=== PATIENT | male | born 1995 | race Caucasian/White ===

== ENCOUNTER 2019-11-24 22:05 | Emergency (ER) | payer SELFPAY ==
[~2019-11-24] VITALS: Ht 175.2 cm; Wt 59.0 kg
[2019-11-24 22:05] VITALS: BP 138/82
--- OUTSIDE RECORDS SUMMARY | 2019-11-24 22:09 | XMS REPORT | Referral Summary ---
Author Author [facility] Organization [facility] Address Unknown Phone Unavailable Care Team Providers Care Circulation Assistant Name Role Phone No PCP, Pt States PCP Encounter [facility] [phone] Date(s): 07/09/17 - 07/09/17 [facility] [address] [place] [address] [facility] Discharge Diagnosis: Boxers fracture Discharge Disposition: 01-Home or Self Care Attending Physician: Provider, Immediate Care Attending Physician: Darius Rosa APRN Admitting Physician: Provider, Immediate Care Vital Signs Most recent to 1 oldest [Reference Range]: Temperature Oral 37 degC [35.8-37.3 degC] (07/09/17 11:57 AM) Peripheral Pulse 58 bpm Rate [60-100 bpm] *LOW* (07/09/17 11:57 AM) Blood Pressure 122/80 mmHg [90-140/60-90 mmHg] (07/09/17 11:57 AM) SpO2 99 % (07/09/17 11:57 AM) Problem List No Known Problems Allergies, Adverse Reactions, Alerts No Known Allergies Medications Crutches (DME) DME Item weight bearing as tolerated, See Instructions, # 1 Each, 0 Refill(s), P harmacy: [place] [id number], weight bearing as tolerated, Supply Start Date: 03/01/14 Status: Ordered Results No data available for this section Immunizations No data available for this section Procedures Procedure Date Related Diagnosis Body Site Application of short arm splint (forearm to 07/09/17 hand); static.. Social History Social History Type Response Smoking Status Never smoker entered on: 01/25/14 Assessment and Plan Extracted from: Title: Office Visit Note Author: Darius Rosa APRN D ate: 07/09/17 Patient was placed in the ulnar gutter splint. He isperipheral neurovascular intact before and after placement of the splint. 1.Boxers fracture Instructed patient on medication, use, common side effects, and administration. Discussed proper OTC medication, including [Tylenol or ibuprofen], for symptomatic relief. Discussed use of therapeutic techniques: PRICEMM therapy (protection, relative rest, ice, compression, elevation, medications, modalities) for symptomatic relief. Instructed patient if symptoms worsen or new symptoms arise to seek medical attention here or at the ER. Instructed patient if symptoms do not improve follow up with PCP in 2-3 days. Patient voiced understanding and agreed with treatment plan. Patient dismissed in stable condition. Ordered: Office Visit Level 3 New [id number] Right hand pain Reason For Exam Injury, hand REPORT INDICATION: Trauma. 3 views. AVAILABLE COMPARISONS: None. An acute fracture of the distal fifth metacarpal is present involving the metaphysis and extending into the head of the metacarpal. This extends towards the lateral aspect of the fifth metacarpal/ phalangeal joint. It is nondisplaced. Remainder of the hand is negative. IMPRESSION: Acute nondisplaced fracture of the distal fifth metacarpal. [1] Extracted from: Title: Ulner gutter splint Author: Hayde Cain RN Wayne e: 07/09/17 Ulnar gutter splint applied to right arm as ordered by Darius Rosa APRN. Instructions on care given, pt verbalizes understanding.
--- NOTE | 2019-11-24 22:14 | ED General ---
General Stated Complaint: ABD PAIN Source of Information: Patient, EMS, RN Notes Reviewed History of Present Illness Date Seen by Provider: Nov 24, 2019 Time Seen by Provider: 22:13 Initial Comments This patient is a 24-year-old male presents to the emergency department via EMS complaining of left flank pain. Patient states been going on for a couple days. Patient denies any fever nausea vomiting or diarrhea. States she's had a little loose stool for the past 2 days. We'll do medical evaluation treatment is needed Timing/Duration: 2-3 Days Severity: Moderate Associated Systoms: No Denies Symptoms, No Chest Pain, No Cough, No Diaphoresis, No Fever/Chills, No Headaches, No Loss of Appetite, No Malaise, No Nausea/Vomiting, No Rash, No Seizure, No Shortness of Air, No Syncope, No Weakness, No Other Allergies and Home Medications Allergies Coded Allergies: No Known Drug Allergies (Unverified , 11/24/19) Patient Home Medication List Home Medication List Reviewed: Yes Review of Systems Review of Systems Constitutional: No no symptoms reported, No see HPI, No chills, No diaphoresis, No dizziness, No fever, No malaise, No weakness, No weight gain, No weight loss, No other EENTM: No see HPI, No no symptoms reported, No ear discharge, No hearing loss, No ear pain, No blurred vision, No double vision, No eye pain, No tearing, No vision loss, No dental problems, No hoarseness, No mouth pain, No mouth swelling, No epistaxis, No nose congestion, No nose pain, No throat pain, No throat swelling, No other Respiratory: No no symptoms reported, No see HPI, No cough, No dyspnea on exertion, No hemoptysis, No orthopnea, No phlegm, No short of breath, No stridor, No wheezing, No other Cardiovascular: No no symptoms reported, No see HPI, No chest pain, No edema, No Hx of Intervention, No palpitations, No syncope, No vascular heart diseas, No other Gastrointestinal: No RUQ; LUQ; No RLQ, No LLQ, No no symptoms reported, No see HPI, No abdominal pain, No constipation, No diarrhea, No dysphagia, No hemateme sis, No heartburn, No jaundice, No loss of appetite, No melena, No nausea, No vomiting, No other Genitourinary: No no symptoms reported; see HPI; No decreased output, No discharge, No dysuria, No frequency, No hematuria, No hesitancy, No incontinence, No nocturia, No pain, No other All Other Systems Reviewed Negative Unless Noted: Yes Physical Exam Vital Signs Vital Signs - First Documented 11/24/19 22:05 Temp 37.1 Pulse 102 Resp 18 B/P (MAP) 138/82 (100) Pulse Ox 98 O2 Delivery Room Air Capillary Refill : Height, Weight, BMI Height: '" Weight: lbs. oz. kg; BMI Method: General Appearance: No Apparent Distress, WD/WN HEENT: PERRL/EOMI, TMs Normal, Normal ENT Inspection, Pharynx Normal Neck: Full Range of Motion, Normal Inspection, Non Tender, Supple, Carotid Bruit Respiratory: Chest Non Tender, Lungs Clear, Normal Breath Sounds, No Accessory Muscle Use, No Respiratory Distress Cardiovascular: Regular Rate, Rhythm, No Edema, No Gallop, No JVD, No Murmur, Normal Peripheral Pulses Gastrointestinal: Normal Bowel Sounds, No Organomegaly, No Pulsatile Mass, Non Tender, Soft Back: Normal Inspection, No CVA Tenderness, No Vertebral Tenderness Skin: Normal Color, Warm/Dry Progress/Results/Core Measures Suspected Sepsis SIRS Temperature: Pulse: Respiratory Rate: Laboratory Tests 11/24/19 22:13: White Blood Count 7.6 Blood Pressure / Mean: Laboratory Tests 11/24/19 22:13: Creatinine 0.91, Platelet Count 199, Total Bilirubin 1.0 Results/Orders Lab Results Laboratory Tests Test 11/24/19 22:13 11/24/19 22:15 Range/Units White Blood Count 7.6 4.3-11.0 10^3/uL Red Blood Count 5.29 4.35-5.85 10^6/uL Hemoglobin 16.6 13.3-17.7 G/DL Hematocrit 49 40-54 % Mean Corpuscular Volume 92 80-99 FL Mean Corpuscular Hemoglobin 31 25-34 PG Mean Corpuscular Hemoglobin Concent 34 32-36 G/DL Red Cell Distribution Width 13.0 10.0-14.5 % Platelet Count 199 130-400 10^3/uL Mean Platelet Volume 11.1 H 7.4-10.4 FL Neutrophils (%) (Auto) 75 42-75 % Lymphocytes (%) (Auto) 16 12-44 % Monocytes (%) (Auto) 7 0-12 % Eosinophils (%) (Auto) 1 0-10 % Basophils (%) (Auto) 1 0-10 % Neutrophils # (Auto) 5.7 1.8-7.8 X 10^3 Lymphocytes # (Auto) 1.3 1.0-4.0 X 10^3 Monocytes # (Auto) 0.5 0.0-1.0 X 10^3 Eosinophils # (Auto) 0.1 0.0-0.3 10^3/uL Basophils # (Auto) 0.1 0.0-0.1 10^3/uL Sodium Level 138 135-145 MMOL/L Potassium Level 4.0 3.6-5.0 MMOL/L Chloride Level 103 98-107 MMOL/L Carbon Dioxide Level 16 L 21-32 MMOL/L Anion Gap 19 H 5-14 MMOL/L Blood Urea Nitrogen 10 7-18 MG/DL Creatinine 0.91 0.60-1.30 MG/DL Estimat Glomerular Filtration Rate > 60 BUN/Creatinine Ratio 11 Glucose Level 76 70-105 MG/DL Calcium Level 9.2 8.5-10.1 MG/DL Corrected Calcium 8.8 8.5-10.1 MG/DL Total Bilirubin 1.0 0.1-1.0 MG/DL Aspartate Amino Transf (AST/SGOT) 11 5-34 U/L Alanine Aminotransferase (ALT/SGPT) 8 0-55 U/L Alkaline Phosphatase 75 40-136 U/L Total Protein 7.4 6.4-8.2 GM/DL Albumin 4.5 3.2-4.5 GM/DL Amylase Level 35 25-125 U/L Lipase 15 8-78 U/L Urine Color YELLOW Urine Clarity CLEAR Urine pH 6.0 5-9 Urine Specific [place] >=1.030 1.016-1.022 Urine Protein TRACE H NEGATIVE Urine Glucose (UA) NEGATIVE NEGATIVE Urine Ketones 3+ H NEGATIVE Urine Nitrite NEGATIVE NEGATIVE Urine Bilirubin NEGATIVE NEGATIVE Urine Urobilinogen 0.2 < = 1.0 MG/DL Urine Leukocyte Esterase NEGATIVE NEGATIVE Urine RBC (Auto) TRACE H NEGATIVE Urine RBC NONE /HPF Urine WBC 0-2 /HPF Urine Squamous Epithelial Cells 0-2 /HPF Urine Crystals NONE /LPF Urine Bacteria NEGATIVE /HPF Urine Casts NONE /LPF Urine Mucus NONE /LPF Urine Culture Indicated NO Urine Opiates Screen NEGATIVE NEGATIVE Urine Oxycodone Screen NEGATIVE NEGATIVE Urine Methadone Screen NEGATIVE NEGATIVE Urine Propoxyphene Screen NEGATIVE NEGATIVE Urine Barbiturates Screen NEGATIVE NEGATIVE Ur Tricyclic Antidepressants Screen NEGATIVE NEGATIVE Urine Phencyclidine Screen NEGATIVE NEGATIVE Urine Amphetamines Screen NEGATIVE NEGATIVE Urine Methamphetamines Screen NEGATIVE NEGATIVE Urine Benzodiazepines Screen NEGATIVE NEGATIVE Urine Cocaine Screen NEGATIVE NEGATIVE Urine Cannabinoids Screen NEGATIVE NEGATIVE My Orders Orders - JAYNA REYES MD Comprehensive Metabolic Panel (11/24/19 22:09) Lipase (11/24/19 22:09) Amylase (11/24/19 22:09) Ua Culture If Indicated (11/24/19 22:09) Ed Iv/Invasive Line Start (11/24/19 22:09) Acute Abd Series (11/24/19:) Cbc With Automated Diff (11/24/19 22:09) Drug Screen Stat (Urine) (11/24/19 22:10) Vital Signs/I&O 11/24/19 22:05 Temp 37.1 Pulse 102 Resp 18 B/P (MAP) 138/82 (100) Pulse Ox 98 O2 Delivery Room Air Capillary Refill : Progress Note : Time: 23:01 Progress Note Negative evaluation in the emergency department. No acute findings. Encourage by mouth fluids. MiraLAX as needed [id number]. Patient should follow PCP in 2-3 days Departure Impression Primary Impression: Abdominal pain Disposition: 01 HOME, SELF-CARE Condition: Stable Departure-Patient Inst. Decision time for Depature: 23:02 Patient Instructions: Flank Pain (DC) Add. Discharge Instructions: Encourage by mouth fluids. MiraLAX as needed [id number]. Patient should follow PCP in 2-3 days JAYNA REYES MD Nov 24, 2019 22:14
[2019-11-24 22:19] LABS: HEMATOCRIT 49 % (40-54); HEMOGLOBIN 16.6 G/DL (13.3-17.7); MEAN CORPUSCULAR HEMOGLOBIN 31 PG (25-34); MEAN CORPUSCULAR HGB CONC 34 G/DL (32-36); MEAN CORPUSCULAR VOLUME 92 FL (80-99); MEAN PLATELET VOLUME 11.1 FL (7.4-10.4); NEUTROPHILS % (AUTO) 75 % (42-75); PLATELET COUNT 199 10^3/uL (130-400); WHITE BLOOD COUNT 7.6 10^3/uL (4.3-11.0)
[2019-11-24 22:20] LABS: BASOPHILS # (AUTO) 0.1 10^3/uL (0.0-0.1); BASOPHILS % (AUTO) 1 % (0-10); EOSINOPHILS # (AUTO) 0.1 10^3/uL (0.0-0.3); EOSINOPHILS % (AUTO) 1 % (0-10); LYMPHOCYTES # (AUTO) 1.3 X 10^3 (1.0-4.0); LYMPHOCYTES % (AUTO) 16 % (12-44); MONOCYTES # (AUTO) 0.5 X 10^3 (0.0-1.0); MONOCYTES % (AUTO) 7 % (0-12); NEUTROPHILS # (AUTO) 5.7 X 10^3 (1.8-7.8)
[2019-11-24 22:36] LABS: BILIRUBIN,URINE NEGATIVE (NEGATIVE); CLARITY,URINE CLEAR; COLOR,URINE YELLOW; GLUCOSE, URINE (UA) NEGATIVE (NEGATIVE); KETONES,URINE 3+ (NEGATIVE); LEUKOCYTE ESTERASE ,URINE NEGATIVE (NEGATIVE); NITRITE,URINE NEGATIVE (NEGATIVE); PROTEIN,URINE TRACE (NEGATIVE)
[2019-11-24 22:37] LABS: BACTERIA,URINE NEGATIVE /HPF; SQUAMOUS EPITHELIAL CELL,UR 0-2 /HPF; WBC,URINE 0-2 /HPF
[2019-11-24 22:42] LABS: AMPHETAMINE SCREEN, URINE NEGATIVE (NEGATIVE); BARBITURATE SCREEN URINE NEGATIVE (NEGATIVE); BENZODIAZEPINES SCREEN URINE NEGATIVE (NEGATIVE); CANNABINOID SCREEN, URINE NEGATIVE (NEGATIVE); COCAINE SCREEN URINE NEGATIVE (NEGATIVE); METHADONE STAT NEGATIVE (NEGATIVE); METHAMPHETAMINE SCREEN URINE S NEGATIVE (NEGATIVE); OPIATE SCREEN URINE NEGATIVE (NEGATIVE); OXYCODONE STAT NEGATIVE (NEGATIVE); PROPOXYPHENE STAT NEGATIVE (NEGATIVE); TRICYCLIC ANTIDEPRESSANTS SCRE NEGATIVE (NEGATIVE)
[2019-11-24 22:50] LABS: BUN/CREATININE RATIO 11; CALCIUM 9.2 MG/DL (8.5-10.1); CARBON DIOXIDE 16 MMOL/L (21-32); CHLORIDE 103 MMOL/L (98-107); CREATININE SERUM 0.91 MG/DL (0.60-1.30); GFR ESTIMATED > 60; GLUCOSE 76 MG/DL (70-105); SODIUM 138 MMOL/L (135-145)
[2019-11-24 22:51] LABS: ALANINE AMINOTRANSFERASE 8 U/L (0-55); ALBUMIN 4.5 GM/DL (3.2-4.5); ALKALINE PHOSPHATASE 75 U/L (40-136); AMYLASE 35 U/L (25-125); LIPASE 15 U/L (8-78); TOTAL PROTEIN 7.4 GM/DL (6.4-8.2)
--- NOTE | 2019-11-25 06:07 | Diagnostic Imaging Report ---
INDICATION: Left flank and abdominal pain COMPARISON: None FINDINGS: Supine and upright views of the abdomen show a nondistended bowel gas pattern. No abnormal air fluid levels or free intraperitoneal air is seen. No abnormal extraosseous calcifications are seen. Bony and soft tissue structures are within normal limits. No organomegaly is identified. Accompanying upright chest shows normal heart size and pulmonary vascularity. The lungs are well aerated and clear. The mediastinum is normal in appearance. IMPRESSION: 1. No bowel obstruction or free air. 2. Normal chest. No pneumonia or pulmonary edema. Dictated by: Dictated on workstation # [id number]
== END 2019-11-24 23:04 | disposition home or self-care (01) ==
LOC: ER FS 22:06
DX: R10.9 Unspecified abdominal pain (principal)
CPT/HCPCS: 36415; 74022; 80053; 80306; 81000; 82150; 83690; 85025

== ENCOUNTER 2020-04-09 18:02 | Emergency (ER) | payer SELFPAY ==
[~2020-04-09] VITALS: Ht 175 cm; Wt 75.0 kg
[2020-04-09 18:53] LABS: BASOPHILS % (AUTO) 0 % (0-10); EOSINOPHILS # (AUTO) 0.1 10^3/uL (0.0-0.3); EOSINOPHILS % (AUTO) 1 % (0-10); HEMATOCRIT 52 % (40-54); HEMOGLOBIN 17.2 G/DL (13.3-17.7); LYMPHOCYTES # (AUTO) 1.5 X 10^3 (1.0-4.0); LYMPHOCYTES % (AUTO) 15 % (12-44); MEAN CORPUSCULAR HEMOGLOBIN 31 PG (25-34); MEAN CORPUSCULAR HGB CONC 33 G/DL (32-36); MEAN CORPUSCULAR VOLUME 92 FL (80-99); MEAN PLATELET VOLUME 11.1 FL (7.4-10.4); MONOCYTES # (AUTO) 0.7 X 10^3 (0.0-1.0); MONOCYTES % (AUTO) 7 % (0-12); NEUTROPHILS # (AUTO) 7.6 X 10^3 (1.8-7.8); NEUTROPHILS % (AUTO) 77 % (42-75); PLATELET COUNT 190 10^3/uL (130-400); RED CELL DISTRIBUTION WIDTH 13.7 % (10.0-14.5); WHITE BLOOD COUNT 9.9 10^3/uL (4.3-11.0)
[2020-04-09 18:54] LABS: BILIRUBIN,URINE NEGATIVE (NEGATIVE); CLARITY,URINE CLEAR; COLOR,URINE YELLOW; GLUCOSE, URINE (UA) NEGATIVE (NEGATIVE); KETONES,URINE 2+ (NEGATIVE); LEUKOCYTE ESTERASE ,URINE NEGATIVE (NEGATIVE); NITRITE,URINE NEGATIVE (NEGATIVE); PH,URINE 6.5 (5-9); PROTEIN,URINE TRACE (NEGATIVE)
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
[2020-04-09 19:02] LABS: ALBUMIN 4.6 GM/DL (3.2-4.5); CHLORIDE 105 MMOL/L (98-107); POTASSIUM 4.2 MMOL/L (3.6-5.0); SODIUM 139 MMOL/L (135-145)
[2020-04-09 19:03] LABS: CALCIUM 9.7 MG/DL (8.5-10.1)
[2020-04-09 19:05] LABS: BACTERIA,URINE TRACE /HPF; SQUAMOUS EPITHELIAL CELL,UR RARE /HPF
[2020-04-09 19:05] LABS: GLUCOSE 87 MG/DL (70-105); TOTAL PROTEIN 7.7 GM/DL (6.4-8.2)
[2020-04-09 19:06] LABS: CARBON DIOXIDE 23 MMOL/L (21-32)
[2020-04-09 19:06] LABS: AMPHETAMINE SCREEN, URINE NEGATIVE (NEGATIVE); BARBITURATE SCREEN URINE NEGATIVE (NEGATIVE); BENZODIAZEPINES SCREEN URINE NEGATIVE (NEGATIVE); CANNABINOID SCREEN, URINE POSITIVE (NEGATIVE); COCAINE SCREEN URINE NEGATIVE (NEGATIVE); METHADONE STAT NEGATIVE (NEGATIVE); METHAMPHETAMINE SCREEN URINE S NEGATIVE (NEGATIVE); OPIATE SCREEN URINE NEGATIVE (NEGATIVE); OXYCODONE STAT NEGATIVE (NEGATIVE); PROPOXYPHENE STAT NEGATIVE (NEGATIVE); TRICYCLIC ANTIDEPRESSANTS SCRE NEGATIVE (NEGATIVE)
[2020-04-09 19:07] LABS: BILIRUBIN,TOTAL 0.9 MG/DL (0.1-1.0)
[2020-04-09 19:08] LABS: ALKALINE PHOSPHATASE 75 U/L (40-136); CREATININE SERUM 0.81 MG/DL (0.60-1.30); GFR ESTIMATED > 60
[2020-04-09 19:10] LABS: BUN/CREATININE RATIO 10
[2020-04-09 19:11] LABS: ACETAMINOPHEN < 10 UG/ML (10-30); SALICYLATE < 5.0 MG/DL (5.0-20.0)
[2020-04-09 19:12] LABS: ALANINE AMINOTRANSFERASE 17 U/L (0-55)
[2020-04-09 19:32] LABS: TSH (THYROID ANALYZER) 0.73 UIU/ML (0.35-4.94)
[2020-04-09] MEDS ORDERED: CITA10TA12 PO (19:33)
[2020-04-09 19:44] VITALS: BP 120/74
== END 2020-04-09 19:45 | disposition home or self-care (01) ==
LOC: EDUNIT# 18:02 → ER 18:03
DX: R45.851 Suicidal ideations (principal); F43.21 Adjustment disorder with depressed mood
CPT/HCPCS: 80053; 80306; 81000; 84443; 85025; 99283; G0480 ×3; 36415; 80320; 80329